=== PATIENT | male | born 1955 | race Caucasian/White ===

== ENCOUNTER 2018-02-11 11:35 | Emergency (ER) | payer BC, OTHER ==
[~2018-02-11] VITALS: Ht 167.6 cm; Wt 86.6 kg
--- NOTE | 2018-02-11 11:36 | NUR ---
BBRA C/O LEFT SHOULDER DISLOCATION S/P SLIP AND FALL ON WET FLOOR. NAD NOTED. NO OTHER TRAUMA NOTED. PT AAO X4, AMB WITH STEADY GAIT. RR EVEN AND UNLABORED. MD AT BEDSIDE FOR EVAL.
[2018-02-11] MEDS ORDERED: ONDANSETRON HCL/PF 4 MG/2 ML VIAL ONE (11:58)
[2018-02-11] MEDS ORDERED: MORPHINE SULFATE INJ 4 MG/ML DISP.SYRIN ONE (11:59)
[2018-02-11] MEDS ORDERED: MORPHINE SULFATE INJ 2 MG/ML DISP.SYRIN IV ONE (12:00)
[2018-02-11] MEDS ORDERED: ONDANSETRON HCL/PF 4 MG/2 ML VIAL IV ONE (12:00)
[2018-02-11] MEDS ORDERED: ETOMIDATE 2 MG/ML VIAL ONE (12:11)
--- NOTE | 2018-02-11 12:26 | NUR ---
20MG ETOMIDATE GIVEN PER MD ORDER
--- NOTE | 2018-02-11 12:28 | NUR ---
MODERATE SEDATION COMPLETED. VSS. CONTINUE TO MONITOR PT. PAGED XRAY
[2018-02-11] MEDS ORDERED: ETOMIDATE 2 MG/ML VIAL IV ONE (13:00)
[2018-02-11 13:43] VITALS: BP 144/68
--- NOTE | 2018-02-11 13:45 | NUR ---
Patient discharged to home in stable condition. Written and verbal after care instructions given. Patient verbalizes understanding of instruction. IV removed. Catheter intact and site benign. Pressure and 4x4 applied to site. No bleeding noted. prescriptions given. no further complaints.
== END 2018-02-11 13:44 | disposition home or self-care (01) ==
LOC: ER 11:39
DX: S43.015A Anterior dislocation of left humerus, initial encounter (principal); W01.0XXA Fall on same level from slipping, tripping and stumbling without subsequent striking against object, initial encounter; Y93.89 Activity, other specified; Y92.89 Other specified places as the place of occurrence of the external cause; Y99.8 Other external cause status
CPT/HCPCS: 23650; 73020; 73030; 96374; 96375; 99152; 99285; A4606; J2270; J2405; J3490; Z7610